=== PATIENT | female | born 1975 | race Asian ===

== ENCOUNTER 2019-10-15 15:41 | Emergency (ER) | payer OTHER ==
[~2019-10-15] VITALS: Ht 152.4 cm; Wt 77.6 kg
[2019-10-15 16:01] VITALS: Ht 152.4 cm; Wt 77.6 kg
[2019-10-15 17:34] VITALS: BP 128/84
== END 2019-10-15 17:34 | disposition home or self-care (01) ==
LOC: ED 15:41
DX: S16.1XXA Strain of muscle, fascia and tendon at neck level, initial encounter (principal); V49.59XA Passenger injured in collision with other motor vehicles in traffic accident, initial encounter; Y93.89 Activity, other specified; Y92.413 State road as the place of occurrence of the external cause; Y99.8 Other external cause status
CPT/HCPCS: Q0162